=== PATIENT | female | born 1985 | race Caucasian/White ===

== ENCOUNTER 2022-07-28 10:12 | Outpatient (CLI) | payer OTHER, SELFPAY ==
[2022-07-28 11:23] LABS: Beta HCG Quantitative < 2.39 mIU/ML
== END 2022-07-28 10:13 | disposition home or self-care (01) ==
PROVIDERS: PCP Internal Medicine; Visit Provider Obstetrics & Gynecology
DX: O20.0 Threatened abortion (principal); Z3A.00 Weeks of gestation of pregnancy not specified
CPT/HCPCS: 36415; 84702

== ENCOUNTER 2024-07-20 07:56 | Outpatient (CLI) | payer OTHER, SELFPAY ==
[2024-07-20 09:26] LABS: Hemoglobin A1C 5.1 % (<5.7)
[2024-07-20 10:11] LABS: Free T4 Free Thyroxine 0.88 ng/mL (0.78-2.19)
== END 2024-07-20 07:57 | disposition home or self-care (01) ==
PROVIDERS: PCP Nurse Practitioner; Visit Provider Nurse Practitioner
DX: E03.9 Hypothyroidism, unspecified (principal); R73.03 Prediabetes
CPT/HCPCS: 36415; 83036; 84439; 84443